=== PATIENT | female | born 1930 | race Caucasian/White ===

== ENCOUNTER 2016-09-19 17:41 | Emergency (ER) | payer OTHER, BC ==
[~2016-09-19] VITALS: Ht 167.6 cm; Wt 63.5 kg
[2016-09-19 17:45] VITALS: BP_SYST 131
[2016-09-19] MEDS ORDERED: BACITRACIN 1 GM OINT TP ONE (19:45)
[2016-09-19 20:20] VITALS: BP_SYST 130
== END 2016-09-19 20:20 | disposition home or self-care (01) ==
LOC: SED 17:41
DX: S01.03XA Puncture wound without foreign body of scalp, initial encounter (principal); W01.198A Fall on same level from slipping, tripping and stumbling with subsequent striking against other object, initial encounter; Y93.89 Activity, other specified; Y92.89 Other specified places as the place of occurrence of the external cause; Y99.8 Other external cause status
CPT/HCPCS: 70450-TC; 99284

== ENCOUNTER 2016-11-18 14:26 | Emergency (ER) | payer OTHER, BC ==
[~2016-11-18] VITALS: Ht 167.6 cm; Wt 63.5 kg
[2016-11-18 14:31] VITALS: BP_SYST 124
--- NOTE | 2016-11-18 14:34 | NUR ---
Patient to ER bed 2 to gown for evaluation. Side rails up. Report given to Khadar PECK.
--- NOTE | 2016-11-18 14:40 | NUR ---
ER at bedside examining patient.
--- NOTE | 2016-11-18 14:46 | NUR ---
Pt bib EMS for [facility] s/p mech fall yesterday. Pt has well approximated wound on head.
--- NOTE | 2016-11-18 14:59 | NUR ---
Pt to rad dept w/ rad staff.
--- NOTE | 2016-11-18 15:00 | NUR ---
Pt resting no acute distress noted. Pt denies pain.
--- NOTE | 2016-11-18 18:18 | NUR ---
Patient given written and verbal discharge instructions and verbalizes understanding. ER MD discussed with patient the results and treatment provided. Patient in stable condition. ID arm band removed. Patient educated on pain management and to follow up with PMD. Pain Scale 0/10. Opportunity for questions provided and answered.
[2016-11-18 18:19] VITALS: BP_SYST 124
== END 2016-11-18 18:19 | disposition home or self-care (01) ==
LOC: SED 14:26
DX: S01.01XA Laceration without foreign body of scalp, initial encounter (principal); S01.111A Laceration without foreign body of right eyelid and periocular area, initial encounter; F03.90 Unspecified dementia, unspecified severity, without behavioral disturbance, psychotic disturbance, mood disturbance, and anxiety; W19.XXXA Unspecified fall, initial encounter; Y93.89 Activity, other specified; Y92.89 Other specified places as the place of occurrence of the external cause; Y99.8 Other external cause status
CPT/HCPCS: 70450-TC; 93005; 99284